=== PATIENT | female | born 1940 | race Caucasian/White ===

== ENCOUNTER 2025-01-20 18:32 | Inpatient (IN) | payer MEDICARE, OTHER ==
[~2025-01-20] VITALS: Ht 154.9 cm; Wt 59.0 kg
[2025-01-20] MEDS ORDERED: ONDANSETRON HCL INJ 2MG/ML 2ML 2 MG/ML VIAL IV PRN (22:00)
[2025-01-20] MEDS ORDERED: SODIUM CHLORIDE FLUSH 10 ML SYR INJ PRN (22:00)
[2025-01-20 22:23] LABS: BASOPHILS % 0.5 % (0.0-1.0); EOSINOPHILS % 1.3 % (0.0-6.0); LYMPHOCYTES % 18.3 % (18.0-39.1); MONOCYTES % 8.1 % (4.4-11.3); NEUTROPHILS % 71.1 % (38.7-80.0); RED CELL DISTRIBUTION WIDTH 13.4 % (11.7-14.4)
[2025-01-20 22:30] VITALS: PULSE 73; RESP 17; TEMP 98
[2025-01-20 22:42] LABS: EST GLOMERULAR FILTRATION RATE 72.0 ML/MIN (>=60)
[2025-01-20] MEDS: HYDROCODONE/APAP 5MG-325MG TAB PO PRN (23:41)
[2025-01-21] VITALS (9 sets, daily range): BP systolic 122–156; BP diastolic 58–66; PULSE 58–67; RESP 18–20; TEMP 97.4–98.8; O2SAT 97–100
[2025-01-21] MEDS ORDERED: PANTOPRAZOLE SO40 MG PO (00:39)
[2025-01-21] MEDS ORDERED: ALPRAZOLAM0.25 MG PO (00:39)
[2025-01-21] MEDS ORDERED: ASPIRIN81 MG PO (00:39)
[2025-01-21] MEDS ORDERED: FAMOTIDINE20 MG PO (00:39)
[2025-01-21] MEDS ORDERED: CLOPIDOGREL75 MG PO (00:39)
[2025-01-21] MEDS ORDERED: VITAMIN D325 MCG (00:39)
[2025-01-21] MEDS ORDERED: CLARITIN10 MG PO (00:39)
[2025-01-21] MEDS ORDERED: JANUVIA50 MG PO (00:39)
[2025-01-21] MEDS ORDERED: POLYETHYLENE GL17 GM PO (00:39)
[2025-01-21] MEDS ORDERED: ATORVASTATIN CA40 MG PO (00:39)
[2025-01-21] MEDS ORDERED: HYDROCODON-ACE1 EA11 PO (00:39)
[2025-01-21] MEDS ORDERED: OS-CAL 500+D T1 EACH PO (00:39)
[2025-01-21] MEDS ORDERED: CARVEDILOL6.25 MG PO (00:39)
[2025-01-21] MEDS ORDERED: DOCUSATE SODIU100 MG PO (00:39)
[2025-01-21] MEDS ORDERED: VITAMIN C1000 MG PO (00:39)
[2025-01-21] MEDS ORDERED: FUROSEMIDE20 MG PO (00:39)
[2025-01-21] MEDS ORDERED: LISINOPRIL2.5 MG PO (00:39)
[2025-01-21] MEDS ORDERED: OMEGA 3 1,0001 EACH PO (00:39)
[2025-01-21] MEDS ORDERED: ACETAMINOPHEN 325 MG TAB PO PRN (12:00)
[2025-01-21] MEDS: POLYETHYLENE GLYCOL 3350 17 GM PACK PO SCH (16:12)
[2025-01-21] MEDS: ENOXAPARIN SOD INJ 40 MG/0.4 ML SYR SC SCH (16:12)
[2025-01-21] MEDS: CARVEDILOL 3.125 MG TAB PO SCH (17:08)
[2025-01-21] MEDS: ATORVASTATIN 40 MG TAB PO SCH (21:20)
[2025-01-22] VITALS (7 sets, daily range): BP systolic 132–166; BP diastolic 61–75; PULSE 61–65; RESP 18–21; TEMP 97.4–99.7; O2SAT 97–100
[2025-01-22] MEDS: LORATADINE 10 MG TAB PO SCH (08:20)
[2025-01-22] MEDS: OMEGA 3 POLYUNSAT FATTY ACIDS 1000 MG SOFTGEL PO SCH (08:20)
[2025-01-22] MEDS: ASCORBIC ACID 500 MG TAB PO SCH (08:20)
[2025-01-22] MEDS: PANTOPRAZOLE SOD 40 MG TABEC PO SCH (08:20)
[2025-01-22] MEDS: LISINOPRIL 2.5 MG TAB PO SCH (08:24)
[2025-01-23] VITALS (9 sets, daily range): BP systolic 122–181; BP diastolic 59–83; PULSE 60–70; RESP 18–20; TEMP 97.4–98.4; O2SAT 96–100
[2025-01-23 06:05] LABS: BASOPHILS % 0.6 % (0.0-1.0); EOSINOPHILS % 2.2 % (0.0-6.0); LYMPHOCYTES % 26.0 % (18.0-39.1); MONOCYTES % 10.2 % (4.4-11.3); NEUTROPHILS % 60.4 % (38.7-80.0); RED CELL DISTRIBUTION WIDTH 13.2 % (11.7-14.4)
[2025-01-23 06:36] LABS: EST GLOMERULAR FILTRATION RATE 66.0 ML/MIN (>=60)
[2025-01-23] MEDS: GABAPENTIN 100 MG CAP PO SCH (08:59)
[2025-01-23] MEDS: HYDROCODONE/APAP 10MG-325MG TAB PO PRN (12:38)
[2025-01-23] MEDS: HYDRALAZINE HCL 25 MG TAB PO PRN (13:11)
[2025-01-23] MEDS: LIDOCAINE 4% PATCH TP SCH (21:57)
[2025-01-23] MEDS: ALPRAZOLAM 0.25 MG TAB PO PRN (22:06)
[2025-01-24 03:24] VITALS: BP 145/92; PULSE 70; RESP 18; TEMP 97.7; O2SAT 96
[2025-01-24 06:50] LABS: EST GLOMERULAR FILTRATION RATE 59.0 ML/MIN (>=60)
[2025-01-24 08:52] VITALS: BP 153/73; PULSE 70; RESP 18; TEMP 97.7; O2SAT 98
[2025-01-24 17:36] VITALS: BP 148/79; PULSE 71; RESP 18; TEMP 97; O2SAT 100
[2025-01-24 18:55] VITALS: BP 152/67; PULSE 69; RESP 18; TEMP 97.7; O2SAT 100
[2025-01-24 20:00] VITALS: BP 129/61; PULSE 70; RESP 18; TEMP 97.7; O2SAT 100
[2025-01-24 21:00] VITALS: BP 129/61; PULSE 70; RESP 18; TEMP 97.7; O2SAT 100
[2025-01-25] VITALS (7 sets, daily range): BP systolic 110–137; BP diastolic 53–71; PULSE 60–75; RESP 17–19; TEMP 97.7–98.6; O2SAT 98–100
[2025-01-26] VITALS (7 sets, daily range): BP systolic 106–165; BP diastolic 53–86; PULSE 60–80; RESP 16–20; TEMP 97.2–98.5; O2SAT 96–99
[2025-01-27] VITALS: BP 115/58; PULSE 66; RESP 18; TEMP 97.8; O2SAT 100
[2025-01-27 04:00] VITALS: BP 124/62; PULSE 88; RESP 18; TEMP 97.6; O2SAT 100
[2025-01-27 06:04] LABS: BASOPHILS % 0.7 % (0.0-1.0); EOSINOPHILS % 3.3 % (0.0-6.0); LYMPHOCYTES % 30.6 % (18.0-39.1); MONOCYTES % 12.9 % (4.4-11.3); NEUTROPHILS % 52.2 % (38.7-80.0); RED CELL DISTRIBUTION WIDTH 13.7 % (11.7-14.4)
[2025-01-27 06:34] LABS: EST GLOMERULAR FILTRATION RATE 67.0 ML/MIN (>=60)
[2025-01-27 08:33] VITALS: BP 152/134; PULSE 75; RESP 20; TEMP 98.3; O2SAT 100
[2025-01-27 08:57] LABS: EOSINOPHILS % (MANUAL) 2 % (0-7); LYMPHOCYTES % (MANUAL) 36 % (19-48); MONOCYTES % (MANUAL) 13 % (3.4-9.0); NEUTROPHILS % (MANUAL) 49 % (40-74); PLATELET ESTIMATE ADEQUATE; PLATELET MORPHOLOGY COMMENT NORMAL; RBC MORPHOLOGY COMMENT NORMAL
[2025-01-27 12:31] VITALS: BP 139/75; PULSE 69; RESP 19; TEMP 97.9
[2025-01-27 16:22] VITALS: BP 140/62; PULSE 65; RESP 18; TEMP 98; O2SAT 98
[2025-01-27 20:00] VITALS: BP 134/62; PULSE 69; RESP 20; TEMP 98.1; O2SAT 100
[2025-01-28] VITALS: BP 115/53; PULSE 68; RESP 20; TEMP 97.6; O2SAT 94
[2025-01-28 04:00] VITALS: BP 147/79; PULSE 63; RESP 20; TEMP 97.7; O2SAT 99
[2025-01-28 08:00] VITALS: BP 130/70; PULSE 67; RESP 19; TEMP 98.2; O2SAT 99
[2025-01-28 08:20] VITALS: BP 130/70; PULSE 67; RESP 19; TEMP 98.2; O2SAT 99
[2025-01-28 12:35] VITALS: BP 111/65; PULSE 65; RESP 18; TEMP 98.1; O2SAT 98
[2025-01-28] MEDS ORDERED: ONDANSETRON HCL 4 MG ORAL DISINTEGRATING TAB PO PRN (13:30)
[2025-01-28 15:16] VITALS: BP 125/63; PULSE 72; RESP 19; TEMP 98.2; O2SAT 99
== END 2025-01-28 16:10 | DRG 552 ==
LOC: ER 19:13 → ERHOLD 21:53 → MED/SURG2 01-21 00:13
PROVIDERS: ADMIT Internal Medicine; ATTEND Internal Medicine
DX: S32.10XA Unspecified fracture of sacrum, initial encounter for closed fracture (principal); S32.592A Other specified fracture of left pubis, initial encounter for closed fracture; E22.2 Syndrome of inappropriate secretion of antidiuretic hormone; I11.9 Hypertensive heart disease without heart failure; S80.02XA Contusion of left knee, initial encounter; W17.89XA Other fall from one level to another, initial encounter; I25.10 Atherosclerotic heart disease of native coronary artery without angina pectoris; E78.5 Hyperlipidemia, unspecified; M19.90 Unspecified osteoarthritis, unspecified site; E11.9 Type 2 diabetes mellitus without complications; F41.9 Anxiety disorder, unspecified; M51.369 Other intervertebral disc degeneration, lumbar region without mention of lumbar back pain or lower extremity pain; K21.9 Gastro-esophageal reflux disease without esophagitis; Z74.09 Other reduced mobility; I25.2 Old myocardial infarction; Z85.3 Personal history of malignant neoplasm of breast; Z90.11 Acquired absence of right breast and nipple; Y92.9 Unspecified place or not applicable; Z88.8 Allergy status to other drugs, medicaments and biological substances; Z79.82 Long term (current) use of aspirin; Z79.02 Long term (current) use of antithrombotics/antiplatelets; Z79.891 Long term (current) use of opiate analgesic; Z79.84 Long term (current) use of oral hypoglycemic drugs
CPT/HCPCS: 36415; 72192; 80048; 80053; 82948; 85025; 99284; J1650; J2405; J2470